=== PATIENT | female | born 1970 | race African-American/Black ===

== ENCOUNTER 2017-12-21 13:34 | Emergency (ER) | payer OTHER ==
--- NOTE | 2017-12-21 14:39 | ER Document Report ---
ED Medical Screen (RME) - General Chief Complaint: Abnormal Lab Results Stated Complaint: ABDOMINAL BLOODWORK Time Seen by Provider: 12/21/17 14:34 TRAVEL OUTSIDE OF THE [place] IN LAST 30 DAYS: No - HPI Notes: 12/21/17 14:38 Vaginal bleeding for 1 month stopped on the currently has an IUD in. No vaginal bleeding no dark stools outpatient laboratory studies showed a hemoglobin of 5.9 - Related Data Allergies/Adverse Reactions: No Known Allergies Allergy (Unverified 12/21/17 13:35) Past Medical History - Social History Frequency of alcohol use: Social Drug Abuse: None - Past Medical History Cardiac Medical History: Reports: Hx Hypertension Renal/ Medical History: Denies: Hx Peritoneal Dialysis Review of Systems - Review of Systems Constitutional: Other - Abnormal hemoglobin Physical Exam - Vital signs Vitals: Temp Pulse Resp BP Pulse Ox 99.0 F 104 H 17 156/72 H 99 12/21/17 13:40 12/21/17 13:40 12/21/17 13:40 12/21/17 13:40 12/21/17 13:40 - General General appearance: Appears well In distress: None Course - Re-evaluation Re-evalutation: 12/21/17 14:39 I have greeted and performed a rapid initial assessment of this patient. A comprehensive ED assessment and evaluation of the patient, analysis of test results and completion of the medical decision making process will be conducted by additional ED providers. - Vital Signs Vital signs: Temp Pulse Resp BP Pulse Ox 99.0 F 104 H 17 156/72 H 99 12/21/17 13:40 12/21/17 13:40 12/21/17 13:40 12/21/17 13:40 12/21/17 13:40
[2017-12-21 15:35] LABS: ABSOLUTE RETICS # 0.074 10^6/uL (0.028-0.122); MEAN CORPUSCULAR HEMOGLOBIN 15.2 pg (27.0-33.4); MEAN CORPUSCULAR HGB CONC 28.2 g/dL (32.0-36.0); PLATELET COUNT 207 10^3/uL (150-450); RED BLOOD COUNT 4.26 10^6/uL (3.72-5.28); RED CELL DISTRIBUTION WIDTH 20.9 % (11.5-14.0); RETICULOCYTE COUNT (AUTO) 1.73 % (0.66-2.85); WHITE BLOOD COUNT 9.7 10^3/uL (4.0-10.5)
[2017-12-21 15:46] LABS: ANION GAP 12 (5-19); BLOOD UREA NITROGEN 11 mg/dL (7-20); CALCIUM 9.2 mg/dL (8.4-10.2); CARBON DIOXIDE 23 mmol/L (22-30); CHLORIDE 103 mmol/L (98-107); GLUCOSE 94 mg/dL (75-110); IRON(TIBC) 16.8 ug/dL (37-170); SODIUM 138.4 mmol/L (137-145)
[2017-12-21 15:54] LABS: HEMOGLOBIN 6.5 g/dL (12.0-15.5); MEAN CORPUSCULAR VOLUME 54 fl (80-97)
[2017-12-21 15:59] LABS: ABSOLUTE LYMPHOCYTES# (MANUAL) 2.8 10^3/uL (0.5-4.7); ABSOLUTE MONOCYTES # (MANUAL) 0.4 10^3/uL (0.1-1.4); ABSOLUTE NEUTROPHILS# (MANUAL) 6.3 10^3/uL (1.7-8.2); BASOPHILS % (MANUAL) 2 % (0-2); EOSINOPHILS % (MANUAL) 0 % (0-6); LYMPHOCYTES % (MANUAL) 29 % (13-45); MONOCYTES % (MANUAL) 4 % (3-13); SEGMENTED NEUTROPHILS % (MAN) 65 % (42-78); TOTAL CELLS COUNTED 100
[2017-12-21 16:02] LABS: ANISOCYTOSIS 2+; HYPOCHROMASIA 3+; OVALOCYTES SLIGHT; PLATELET COMMENT ADEQUATE; PLATELET LARGE PRESENT; POIKILOCYTOSIS SLIGHT
[2017-12-21 16:24] LABS: FERRITIN 4.89 ng/mL (6.2-137.0)
[2017-12-21 16:54] LABS: FOLATE 3.56 ng/mL (>2.76)
--- NOTE | 2017-12-21 19:11 | ER Document Report ---
ED General - General Chief Complaint: Abnormal Lab Results Stated Complaint: ABDOMINAL BLOODWORK Time Seen by Provider: 12/21/17 14:34 Mode of Arrival: Ambulatory Information source: Patient Notes: This is a 47-year-old female with a history of anemia in the past that was referred to the ER by primary care doctor (yee roman) because of low blood counts. Patient states she has been fatigued lately. She does get heavy periods which have been irregular for the past few months. She denies any chest pain, shortness of breath. TRAVEL OUTSIDE OF THE [place] IN LAST 30 DAYS: No - HPI Onset: Just prior to arrival Onset/Duration: Gradual Quality of pain: No pain Severity: None Pain Level: Denies Associated symptoms: denies: Chest pain, Fever, Nausea, Vomiting, Shortness of breath Exacerbated by: Denies Relieved by: Denies Similar symptoms previously: Yes Recently seen / treated by doctor: Yes - Related Data Allergies/Adverse Reactions: No Known Allergies Allergy (Unverified 12/21/17 13:35) Past Medical History - General Information source: Patient - Social History Smoking Status: Current Every Day Smoker Cigarette use (# per day): Yes - 6 cigarettes a day Chew tobacco use (# tins/day): No Frequency of alcohol use: Social Drug Abuse: None Lives with: Family Family History: None Patient has suicidal ideation: No Patient has homicidal ideation: No - Past Medical History Cardiac Medical History: Reports: Hx Hypertension Renal/ Medical History: Denies: Hx Peritoneal Dialysis Surgical Hx: Negative Review of Systems - Review of Systems Constitutional: denies: Chills, Fever EENT: No symptoms reported Cardiovascular: No symptoms reported Respiratory: No symptoms reported Gastrointestinal: No symptoms reported Genitourinary: No symptoms reported Female Genitourinary: No symptoms reported Musculoskeletal: No symptoms reported Skin: No symptoms reported Hematologic/Lymphatic: No symptoms reported Neurological/Psychological: Weakness Physical Exam - Vital signs Vitals: Temp Pulse Resp BP Pulse Ox 99.0 F 104 H 17 156/72 H 99 12/21/17 13:40 12/21/17 13:40 12/21/17 13:40 12/21/17 13:40 12/21/17 13:40 Notes: Physical exam: GENERAL: 87-year-old female, alert and oriented 3, no acute distress HEAD: Atraumatic, normocephalic. EYES: Pupils equal round and reactive to light, extraocular movements intact, sclera anicteric, conjunctiva are normal. ENT: TMs normal, nares patent, oropharynx clear without exudates. Moist mucous membranes. NECK: Normal range of motion, supple without obvious mass or JVD. LUNGS: Breath sounds clear to auscultation bilaterally and equal. No wheezes rales or rhonchi. HEART: Regular rate and rhythm with a 2 over 6 systolic murmur without rubs or gallops. ABDOMEN: Soft, normoactive bowel sounds. No tenderness to palpation. No guarding, no rebound. No masses appreciated. EXTREMITIES: Normal range of motion, no pitting or edema. No clubbing or cyanosis. NEUROLOGICAL: Cranial nerves II through XII grossly intact. Normal speech, moving all extremities. PSYCH: Normal mood, normal affect. SKIN: Warm, Dry, normal turgor, no rashes or lesions noted. Course - Re-evaluation Re-evalutation: 12/21/17 22:23 Note: Patient looks good on exam. She does give a history of some fatigue. She does have a history of anemia in the past. Her labs are consistent with iron deficiency anemia. She has had some heavy periods and this is probably contributing to the anemia as well. At this time she seems very stable for an attempt at iron supplementation. I will refer her to [facility] [employer] [facility] regarding her heavy periods. And she will follow-up with her primary care doctor. - Vital Signs Vital signs: Temp Pulse Resp BP Pulse Ox 98.5 F 91 18 163/82 H 100 12/21/17 19:31 12/21/17 19:31 12/21/17 19:31 12/21/17 19:31 12/21/17 19:31 - Laboratory Result Diagrams: 12/21/17 14:58 12/21/17 14:58 Laboratory results interpreted by me: 12/21/17 12/21/17 14:58 14:58 Hgb 6.5 L Hct 23.0 L MCV 54 L MCH 15.2 L MCHC 28.2 L RDW 20.9 H Iron 16.8 L TIBC 803 H Ferritin 4.89 L Discharge - Discharge Clinical Impression: Iron deficiency anemia Condition: Stable Disposition: HOME, SELF-CARE Instructions: Anemia, Iron Deficiency ([facility]) Additional Instructions: Recommendations: As we discussed, your labs are consistent with iron deficiency anemia. The first step would be to put you on iron supplementation and see how your iron level and anemia responds to this. If you start developing shortness of breath , worsening fatigue or weakness, or chest pain, you may require a blood transfusion: Return to the ER in this case. As far as the irregular periods: I would follow-up with a [employer] [facility] doctor. I have given the referral for the [facility]. If it turns out that the iron level does not respond to the iron supplementation , sometimes the anodic treater will give iron infusions. I have left the number for the anodic treater if your anemia does not improve with the supplementation. You should follow-up with a primary care doctor for following the anemia. If your primary care doctor is not accustomed to following patients with anemia, I will last 3 primary care doctors below. Primary Care Doctor's affiliated with [facility]: If you do not have a primary care doctor or you are unable to get an appointment during that time, you can try one of the doctor's below. These are internal medicine doctor's that have admitting priveledges to the hospital ( they will see you both in the office as well as in this hospital if you are ever hospitalized here). Dr. Aretha Nice Lopez [address], [place] [address] [phone] Dr Alvarenga Address: [address] [place] [address] [place] [address] Dr Vilchis Address: [address] [place] [address] [place] [address] Prescriptions: Docusate Sodium [Colace 100 mg Capsule] 100 mg PO BID #60 capsule Ferrous Sulfate [Iron] 325 mg PO BID #60 tablet Forms: Return to Work Referrals: TREE NIELSON MD [ACTIVE STAFF] - Follow up as needed (This is the number for the anodic treater for the iron deficiency anemia) NORM HOOD MD [ACTIVE STAFF] - Follow up as needed (This is the number for the [facility] (director of direct marketing).)
[2017-12-21 19:32] VITALS: BP 163/82
[2017-12-22 15:26] LABS: PATH REVIEW PATHOLOGIST REVIEWED
== END 2017-12-21 19:30 | disposition home or self-care (01) ==
LOC: ER 13:34
DX: D50.9 Iron deficiency anemia, unspecified (principal); R53.1 Weakness; I10 Essential (primary) hypertension; F17.210 Nicotine dependence, cigarettes, uncomplicated
CPT/HCPCS: 36415; 80048; 82607; 82728; 82746; 83540; 83550; 83615; 84466; 85025; 85045; 86850; 86900; 86901; 99283